=== PATIENT | male | born 1995 | race African-American/Black ===

== ENCOUNTER 2021-03-16 07:02 | Emergency (ER) | payer MEDICAID ==
[~2021-03-16] VITALS: Ht 175.3 cm; Wt 98.0 kg
[2021-03-16] MEDS ORDERED: ACETAMINOPHEN WITH CODEINE 300/30MG TABLET PO ONE (07:30)
[2021-03-16 08:59] VITALS: BP 156/91
[2021-03-16 11:03] LABS: BASOPHILS % 0.6 % (0.0-2.0); CHLORIDE 105 mEq/L (98-107); EOSINOPHILS % 2.6 % (0.0-5.0); HEMATOCRIT. 45.3 % (42.0-52.0); HEMOGLOBIN. 14.6 g/dL (14.0-18.0); LYMPHOCYTES % 24.8 % (20.0-50.0); MEAN CORPUSCULAR HEMOGLOBIN 29.8 pg (28.0-32.0); MEAN CORPUSCULAR VOLUME 92.4 fL (80.0-94.0); MEAN PLATELET VOLUME 9.7 fl (7.4-10.4); PLATELET 171 x1000/uL (130-400); RED BLOOD CELL COUNT 4.91 mill/uL (4.7-6.1); RED CELL DISTRIBUTION WIDTH 13.6 % (11.6-14.6)
[2021-03-16] MEDS ORDERED: T3 PO (11:14)
[2021-03-16] MEDS ORDERED: IBUP-2028 PO (11:14)
== END 2021-03-16 11:42 | disposition home or self-care (01) ==
LOC: ER 07:02
DX: M17.12 Unilateral primary osteoarthritis, left knee (principal)
CPT/HCPCS: 36415; 73502; 73552; 73590; 80053; 85025; 93971; 99285

== ENCOUNTER 2021-06-25 21:30 | Emergency (ER) | payer MEDICAID ==
[~2021-06-25 21:30] MED LIST: IBUP-2028 PO; T3 PO
== END 2021-06-25 21:55 | disposition left against medical advice (07) ==
LOC: ER 21:30
DX: Z53.21 Procedure and treatment not carried out due to patient leaving prior to being seen by health care provider (principal)

== ENCOUNTER 2022-02-05 11:03 | Emergency (ER) | payer MEDICAID ==
[~2022-02-05] VITALS: Ht 175.3 cm; Wt 98.0 kg
[2022-02-05 11:26] VITALS: BP 134/78
[2022-02-05] MEDS ORDERED: IBUPROFEN 600MG TABLET PO ONE (12:15)
[2022-02-05 13:15] LABS: EOSINOPHILS % 3.9 % (0.0-5.0); HEMATOCRIT. 45.8 % (42.0-52.0); LYMPHOCYTES % 29.7 % (20.0-50.0); MEAN CORPUSCULAR HEMOGLOBIN 30.5 pg (28.0-32.0); MEAN CORPUSCULAR VOLUME 92.9 fL (80.0-94.0); MONOCYTES % 10.9 % (2.0-8.0); NEUTROPHILS % 54.5 % (40.0-76.0); PLATELET 184 x1000/uL (130-400); RED BLOOD CELL COUNT 4.93 mill/uL (4.7-6.1); RED CELL DISTRIBUTION WIDTH 13.5 % (11.6-14.6)
[2022-02-05 13:21] LABS: CHLORIDE 104 mEq/L (98-107)
[2022-02-05] MEDS ORDERED: IBUP-2029 MT (13:39)
== END 2022-02-05 14:03 | disposition home or self-care (01) ==
LOC: ER 11:03
DX: R60.9 Edema, unspecified (principal)
CPT/HCPCS: 36415; 71045; 80048; 83880; 85025; 99284

== ENCOUNTER 2023-07-26 23:22 | Emergency (ER) | payer MEDICAID ==
[~2023-07-26] VITALS: Ht 180.3 cm; Wt 98.0 kg
[~2023-07-26 23:22] MED LIST changes: +IBUP-2029 MT
[2023-07-26 23:34] VITALS: TEMP 97.9; O2SAT 94
[2023-07-27] MEDS: LIDOCAINE HCL/PF 1% 10 MG/ML 5ML VIAL INFIL ONE
[2023-07-27] MEDS: BACITRACIN ZINC OINT UDPKT TOP ONE
[2023-07-27] MEDS: IBUPROFEN 600MG TABLET PO ONE (01:29)
[2023-07-27] MEDS: TETANUS, DIPHTHERIA, PERTUSSIS VAC/PF 0.5ML (>10YR OLD) IM ONE (01:32)
[2023-07-27] MEDS ORDERED: ACET-2708 MT (02:42)
[2023-07-27] MEDS ORDERED: CEPH500C2 MT (02:42)
[2023-07-27] MEDS ORDERED: BO1 TP (02:42)
[2023-07-27 02:45] VITALS: BP 139/87; PULSE 72; RESP 18
== END 2023-07-27 03:54 | disposition home or self-care (01) ==
LOC: ER 23:22 → EDUNIT# 23:22 → ER 07-27 03:54
DX: S61.412A Laceration without foreign body of left hand, initial encounter (principal); E11.9 Type 2 diabetes mellitus without complications; W26.0XXA Contact with knife, initial encounter; Y93.89 Activity, other specified; Y92.89 Other specified places as the place of occurrence of the external cause; Y99.8 Other external cause status
CPT/HCPCS: 99283; 12002; 90715; 90471; J3490

== ENCOUNTER 2023-08-10 13:12 | Emergency (ER) | payer MEDICAID ==
[~2023-08-10] VITALS: Ht 175.3 cm; Wt 102.0 kg
[~2023-08-10 13:12] MED LIST changes: +ACET-2708 MT; +BO1 TP; +CEPH500C2 MT
[2023-08-10 13:40] VITALS: BP 164/100; PULSE 72; RESP 18; TEMP 98.5; O2SAT 100
[2023-08-10] MEDS ORDERED: LIDOCAINE/EPINEPHR/TETRACAINE 3ML TP ONE (14:30)
[2023-08-10] MEDS ORDERED: LIDOCAINE/PRILOCAINE CREAM 5 GM TUBE TOP NR (15:00)
== END 2023-08-10 15:00 | disposition left against medical advice (07) ==
LOC: ER 13:12
DX: S51.812D Laceration without foreign body of left forearm, subsequent encounter (principal); E11.9 Type 2 diabetes mellitus without complications; X58.XXXD Exposure to other specified factors, subsequent encounter
CPT/HCPCS: 99281; Z7610 ×2